=== PATIENT | male | born 1965 | race Caucasian/White ===

== ENCOUNTER 2020-04-26 11:16 | Inpatient (IN) | payer OTHER ==
[~2020-04-26] VITALS: Ht 167.6 cm; Wt 90.3 kg
[2020-04-26 11:22] VITALS: BP 165/96
[2020-04-26 11:43] LABS: ABSOLUTE EOSINOPHILS 0.3 thou/uL (0.0-0.7); ABSOLUTE LYMPHOCYTES 1.7 thou/uL (0.8-5.3); ABSOLUTE MONOCYTES 0.6 thou/uL (0.0-1.2); ABSOLUTE NEUTROPHILS 3.4 thou/uL (1.6-8.1); BASOPHILS 0.5 %; EOSINOPHILS 4.7 %; HEMATOCRIT 47.1 % (42.0-52.0); HEMOGLOBIN 16.1 gm/dL (14.0-18.0); MCH 31.5 pg (26.0-34.0); MCHC 34.1 g/dL (28.0-37.0); MCV 92.3 fL (80.0-100.0); MONOCYTES 10.1 %; MPV 8.2 fl. (7.2-11.1); NUCLEATED RBCS 0 /100WBC; PLATELET COUNT* 183 thou/uL (150-400); POLYS 56.7 %; RDW-CV 13.6 % (10.5-14.5)
[2020-04-26 11:49] LABS: CALCIUM 8.4 mg/dL (8.5-10.1); CREATININE 0.9 mg/dL (0.6-1.3); POTASSIUM 4.1 mmol/L (3.5-5.1)
[2020-04-26 11:59] LABS: ALBUMIN 3.6 g/dL (3.4-5.0); MAGNESIUM 2.1 mg/dL (1.8-2.4); TOTAL BILIRUBIN 0.5 mg/dL (<0.1-1.0); TOTAL PROTEIN 6.7 g/dL (6.4-8.2)
[2020-04-26] MEDS ORDERED: TOPROL XL25 MG PO (13:29)
[2020-04-26] MEDS ORDERED: ZESTRIL20 MG PO (13:29)
[2020-04-26] MEDS ORDERED: NAPROSYN500 MG PO (13:30)
[2020-04-26 15:14] VITALS: BP 144/71
[2020-04-26 16:03] VITALS: BP 153/81
[2020-04-26 20:00] VITALS: BP 118/75
[2020-04-27] VITALS: BP 150/90
[2020-04-27 04:00] VITALS: BP 138/77
[2020-04-27 08:00] VITALS: BP 171/113
--- NOTE | 2020-04-27 12:13 | EKG ---
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: AUTUMN : 1965 Requested By: Luis Gamoba Order Number: [id number] MD: Liban Marley Measurements Intervals [place] Rate: 57 P: 22 ME: 161 QRS: -35 QRSD: 104 T: 212 QT: 422 QTc: 411 Interpretive Statements Sinus rhythm Left axis deviation Probable anteroseptal infarct, old Abnormal T, consider ischemia, diffuse leads Baseline wander in lead(s) II,III,aVR,aVF No previous ECG available for comparison Electronically Signed On 04-27-2020 12:13:01 CDT by Liban Marley [email or web address] <ELECTRONICALLY SIGNED> By: Juan Carlos Marley MD, FACC 04/27/20 1213 21 112 Juan Carlos Marley MD, FACDontae /EPI
[2020-04-27 15:24] VITALS: BP 144/102
[2020-04-27 19:57] VITALS: BP 188/120
[2020-04-27 20:30] VITALS: BP 159/100
[2020-04-28] VITALS: BP 169/100
[2020-04-28 04:04] VITALS: BP 159/93
[2020-04-28 04:23] LABS: CHOLESTEROL 170 mg/dL (<200); HDL CHOLESTEROL 50 mg/dL (>40); LDL CHOLESTEROL 97 mg/dL (<100); TC:HDL 3.4 Ratio (Not establshd); TRIGLYCERIDE 118 mg/dL (<150); VLDL 24 mg/dL (<40)
[2020-04-28 04:28] LABS: SERUM ASSESSMENT Clear
[2020-04-28 08:36] VITALS: BP 189/112
[2020-04-28] MEDS ORDERED: PROTONIX40 M4 PO (11:18)
--- NOTE | 2020-04-28 16:37 | 2DMMODE ---
[place] [address] 2 D/M-MODE ECHOCARDIOGRAM Name: NAEEM VARGAS Room: [address] ADM IN M.R.#: [id number] Admission: 04/26/20 Attend Phys: Destin Nowak Discharge: Date of : 61 Date of Service: 04/28/20 1636 Report #: [id number] THIS REPORT FOR: cc: FAM - Family physician unknown FAM - Family physician unknown Justo Donohue MD [facility] ~ APPROVED REPORT Study performed: 04/28/2020 10:32:48 EXAM: Comprehensive 2D, Doppler, and color-flow Echocardiogram Patient Location: Bedside BSA: 1.97 HR: 51 bpm BP: 189/112 mmHg Other Information Study Quality: Adequate Indications Chest Pain 2D Dimensions IVSd: 17.72 (7-11mm) LVOT Diam: 21.66 (18-24mm) LVDd: 51.27 mm PWd: 13.03 (7-11mm) Ascending Ao: 40.52 (22-36mm) LVDs: 37.17 (25-40mm) Aortic Root: 31.06 mm Volumes Left Atrial Volume (Systole) LA ESV Index: 29.40 mL/m2 Aortic Valve AoV Peak Sherwin.: 0.97 m/s AO Peak Gr.: 3.76 mmHg LVOT Max P.17 mmHg AO Mean Gr.: 2.23 mmHg LVOT Mean P.00 mmHg LVOT Max V: 0.74 m/s AO V2 VTI: 21.67 cm LVOT Mean V: 0.46 m/s LINETTE (VTI): 2.59 cm2 LVOT V1 VTI: 15.23 cm Mitral Valve E/A Ratio: 1.69 [place] [address] 2 D/M-MODE ECHOCARDIOGRAM Name: NAEEM VARGAS Room: [address] IN .R.#: [id number] Admission: 04/26/20 Attend Phys: Destin Nowak Discharge: Date of : 61 Date of Service: 04/28/20 1636 Report #: [id number] MV Decel. Time: 169.90 ms MV E Max Sherwin.: 0.78 m/s MV PHT: 49.27 ms MVA (PHT): 4.47 cm2 TDI E/Lateral E': 8.67 E/Medial E': 13.00 Medial E' Sherwin.: 0.06 m/s Lateral E' Sherwin.: 0.09 m/s Pulmonary Valve PV Peak Sherwin.: 0.76 m/s PV Peak Gr.: 2.31 mmHg Tricuspid Valve RAP Estimate: 15.00 mmHg TR Peak Gr.: 35.28 mmHg RVSP: 50.28 mmHg PA Pressure: 50.28 mmHg Left Ventricle The left ventricle is normal size. There is normal LV segmental wall motion. Mild concentric left ventricular hypertrophy. The left ventricular systolic function is normal. LVEF is 50-55%. The left ventricular diastolic function is normal. Right Ventricle The right ventricle is normal size. The right ventricular systolic function is normal. Atria The left atrium size is normal. The right atrium size is normal. Aortic Valve The aortic valve is normal in structure. No aortic regurgitation is present. There is no aortic valvular stenosis. Mitral Valve The mitral valve is normal in structure. Trace mitral regurgitation. No evidence of mitral valve stenosis. Tricuspid Valve The tricuspid valve is normal in structure. Trace tricuspid regurgitation. No pulmonary hypertension. Pulmonic Valve The pulmonary valve is normal in structure[place] [address] 2 D/M-MODE ECHOCARDIOGRAM Name: NAEEM VARGAS Room: [address] IN [facility]#: [id number] Admission: 04/26/20 Attend Phys: Destin Nowak Discharge: Date of : 61 Date of Service: 04/28/20 1636 Report #: [id number] regurgitation. Great Vessels The aortic root is normal in size. The inferior vena cava is not well visualized. Pericardium There is no pericardial effusion. <Conclusion> The left ventricle is normal size. Mild concentric left ventricular hypertrophy. The left ventricular systolic function is normal. LVEF is 50-55%. The left ventricular diastolic function is normal. Trace mitral regurgitation. Trace tricuspid regurgitation. No pulmonary hypertension. <ELECTRONICALLY SIGNED> By: Justo Donohue MD, FACC 04/28/201635 35 35 Justo Donohue MD, FACC /INF
[2020-04-28 17:18] VITALS: BP 192/110
[2020-04-28] MEDS ORDERED: MAXZIDE-25 MG1 EACH PO (17:18)
[2020-04-28] MEDS ORDERED: FLOMAX0.4 MG PO (17:18)
--- NOTE | 2020-04-28 18:04 | CARDNUC ---
[place] [address] CARDIAC NUCLEAR IMAGING REPORT Name: VARGASNAEEM Mari Room: [address] IN [facility]#: [id number] Admission: 04/26/20 Attend Phys: Destin Nowak Discharge: Date of : 61 Date of Service: 04/28/20 1804 Report #: [id number] THIS REPORT FOR: cc: FAM - Family physician unknown FAM - Family physician unknown Justo Donohue MD [facility] ~ APPROVED REPORT Imaging Protocol: Stress Tc-99mm Only Study performed: 04/27/2020 11:18:00 Indication: Chest pain, Dyspnea, numbness left arm, shoulder and back. Patient Location: In-Patient Room #: 210 Stress Tech: Luz Maria Velazquez Stress Nurse: Nicole Montano RN NM Tech:VALERY Singh Ht: 5 ft 6 in Wt: 186 lbs BSA: 1.94 m2 BMI: 30.01 Medical History Medical History: Angina, Dyspnea,chills, numbness in left arm, shoulder, back, bradycardia, CVA, lower exercise tolerance, increased fatigue, HTN, current smoker, knee pain/bone on bone, unstable gait. Medications: Metoprolol, ASA 81 Mg, Lisinopril. Allergies: No known drug allergies Cardiac Risk Factors: Age, Current Smoker, FHX of CAD, HTN, SOB, ABN EKG, Bradycardia. Previous Cardiac Procedures: None Pretest Chest Pain Characteristics: Chest pain 2/ Exercise History: Sedentary Physical Disabilities: Knee pain - bone on bone, unstable/weak gait. Meds Held (24 hrs): Metoprolol. Pharmacologic Stress Pharmacologic stress test was performed by injecting Regadenoson 0.4 mg IV push over 10-15 seconds immediately followed by the intravenous injection of 33.6 mCi of Tc-99m Sestamibi. Time of stress injection: 1155 Date: 04/28/2020 Administration Route: [place] [address] CARDIAC NUCLEAR IMAGING REPORT Name: NAEEM VARGAS Room: [address]#: [id number] Admission: 04/26/20 Attend Phys: Destin Nowak Discharge: Date of : 61 Date of Service: 04/28/20 1804 Report #: [id number] Administration Site: Right AC Gated Stress SPECT was performed 40 minutes after stress injection. The images were gated to evaluate regional wall motion and calculate left ventricular ejection fraction. Prone imaging was performed. Stress Test Details Stress Test: Pharmacologic stress testing performed using 0.4 mg of regadenoson per 5 mL given IV over 10 seconds. Reason for pharmacologic stress test: Knee pain - bone on bone, unstable/weak gait.. HR Max Heart Rate (APMHR): 164 bpm Resting HR: 53 bpm Target HR (85% APMHR): 139 bpm Max HR Achieved: 77 bpm % of APMHR: 46 Recovery HR: 71 bpm BP Resting BP: 199/114 mmHg Max BP: 176/104 mmHg Recovery BP: 188/109 mmHg ECG Resting ECG: Sinus Rhythm Stress ECG: Sinus Rhythm ST Change: None Arrhythmia: None Recovery ECG: Sinus Rhythm Recovery ST Change: None Recovery Arrhythmia: None Clinical Reason for Termination: Completed protocol Stress Symptoms: Nausea, LE coldness, heavy legs, chest pain 09/10. Exercise duration: 00 min 00 sec Exercise capacity: 1.00 METs The patient tolerated Lexiscan infusion without significant cardiac symptoms. Nurse Comments A 54 year old male inpatient presented with impairing knee pain for a sitting Lexiscan r/t chest pain, dyspnea, ABN EKG, Bradycardia, numbness in left arm, shoulder and back with increased fatigue and decreased exercise tolerance. Test [place] [address] CARDIAC NUCLEAR IMAGING REPORT Name: NAEEM VARGAS Room: [address]#: [id number] Admission: 04/26/20 Attend Phys: Destin Nowak Discharge: Date of : 61 Date of Service: 04/28/20 1804 Report #: [id number] unremarkable. Patient stated he felt good at the end of recovery with continued HTN. Patient escorted via wheelchair to Nuclear Medicine for imaging. Stress ECG Conclusion Baseline twelve-lead EKG shows sinus rhythm without significant ST segment abnormalities. EKGs obtained during and post Lexiscan infusion show sinus rhythm with no significant ST segment changes when compared to baseline. There were no significant stress-induced arrhythmias. Study Quality Study: Good Artifact: No artifact Study Data Post stress, the left ventricular ejection was 47%.. Perfusion Perfusion images show uniform uptake of the radioisotope throughout the myocardium. There were no defects to suggest infarct or ischemia. Wall Motion Gated study suggest mild global hypokinesis without focal wall motion abnormality. Ejection fraction calculated to be 47%. Nuclear Conclusion ECG Findings: negative for ischemia Clinical Findings: negative for ischemia Nuclear Findings: negative for ischemia Exercise Capacity: not assessed Left Ventricular Function: Mildly decreased Perfusion study showed no defect to suggest infarct or ischemia. LV systolic function appears mildly decreased on gated studies without obvious focal wall motion abnormality. This is not a high risk study. <Conclusion> Baseline twelve-lead EKG shows sinus rhythm without significant ST segment abnormalities. EKGs obtained during and post Lexiscan infusion show sinus rhythm with no [place] [address] CARDIAC NUCLEAR IMAGING REPORT Name: NAEEM VARGAS Room: [address] IN .#: [id number] Admission: 04/26/20 Attend Phys: Destin Nowak Discharge: Date of : 61 Date of Service: 04/28/20 1804 Report #: [id number] when compared to baseline. There were no significant stress-induced arrhythmias. <ELECTRONICALLY SIGNED> By: Justo Donohue MD, FACC 04/28/201803 03 03 Justo Donohue MD, FACC /INF
[2020-04-28 18:09] VITALS: BP 192/110
--- NOTE | 2020-04-29 08:02 | CON ---
[address] [address] CONSULTATION Name: NAEEM VARGAS Room: [address] IN M.R.#: [id number] Admission: 04/26/20 Attend Phys: Jose Angel Cooper Discharge: 04/28/20 Date of : 61 Report #: [id number] THIS REPORT FOR: //name// cc: FAM - Family physician unknown FAM - Family physician unknown ~ CARDIOLOGY CONSULTATION HISTORY OF PRESENT ILLNESS: I was asked by Dr. Nowak to see this 54-year-old white male in cardiology consultation for evaluation and treatment of chest pain. This man does have a history of essential hypertension and a previous CVA, I believe the CVA was in 2014. This man did have similar pain with a workup at [facility] in 2018. All that came of that workup was that he was said to have an enlarged heart. This man's chest pain started last Tuesday. The pain is in the left upper chest, left shoulder area under the left arm and around to the left back. He describes the pain as sharp like a knife, it is a 5 on a scale of 10, it has been largely continuous since that time, although sometimes it becomes numb in those areas. There was no associated nausea, vomiting, diaphoresis but minimal amount of shortness of breath. The pain is nonexertional, it is nonradiating. It has been present almost continuously except for the time which is numb since last Tuesday. This man does have a history of essential hypertension. There is a family history of coronary disease and he is a smoker. He smoked for many years. It was told by me today no uncertain terms to stop smoking. He does not have diabetes or hypercholesterolemia to his knowledge. PAST MEDICAL HISTORY: As described above. HOME MEDICATIONS: Metoprolol succinate extended release 25 mg daily and lisinopril 20 mg daily as well as naproxen 500 mg p.o. b.i.d. p.r.n. ALLERGIES: He has no known allergies. FAMILY HISTORY: Remarkable only for coronary disease. SOCIAL HISTORY: He smokes. Drinks minimally. Does not use illegal drugs. He is . REVIEW OF SYSTEMS: Unremarkable except as in the history of present illness. PHYSICAL EXAMINATION: GENERAL: He presents as well-developed, well-nourished white male in no acute distress. VITAL SIGNS: His pulse is 54 and regular, blood pressure is 138/77, respirations 16 and regular, temperature is 97.8. HEENT: His head was atraumatic. Eyes clear. NECK: Supple. There is no jugular venous distention or hepatojugular reflux. Thyroid is not enlarged. [place] [address] CONSULTATION Name: NAEEM VARGAS Room: [address] IN [facility].#: [id number] Admission: 04/26/20 Attend Phys: Jose Angel Cooper Discharge: 04/28/20 Date of : 61 Report #: [id number] SKIN: Warm and dry. Mucous membranes are moist. LUNGS: Clear to auscultation and percussion. HEART: Revealed normal first and second heart sound. There is soft S4. There is no S3. There are no murmurs, rubs, thrills, heaves or gallops. PMI is nondisplaced. ABDOMEN: Soft, flat and nontender. No palpable masses, no organomegaly. EXTREMITIES: Reveal no cyanosis, clubbing or edema. NEUROLOGIC: The patient mentated normally, talked normally, moved all extremities normally. Note that moving his shoulder and arm does not result in pain. LABORATORY DATA: His chest x-ray was normal. A CTA of the chest was normal except for an ectatic aorta in the ascending aorta, which measured 3.8 x 3.9. There was no clearcut aneurysm or dissection. There was no pulmonary embolism. His NT-proBNP was 30 and troponins were negative x 3. His EKG is not normal. It shows sinus bradycardia, heart rate was 57. There is left axis deviation. The axis was minus 35. There was a possible old anteroseptal infarct. There was a near Q-wave in V2 and near Q-wave in V1. There may be little R waves. There were T-wave inversions in multiple leads including 1, 3, aVF, V5 and V6. Ischemia cannot be excluded. IMPRESSION: 1. Chest pain is somewhat atypical for coronary artery disease. 2. Abnormal EKG. 3. Essential hypertension. 4. Status post cerebrovascular accident. 5. Family history of coronary disease. RECOMMENDATION: He should have a Lexiscan Cardiolite stress test. He says he cannot walk on a treadmill very well and he should get an echo. I would also check for evidence of inflammation with a sed rate, AKASH, RA titer and cardiac CRP and also check a fasting lipid profile. Thank you very much for asking me to see the patient. If there are any questions, please feel free to contact me. <ELECTRONICALLY SIGNED> By: Juan Carlos Marley MD, [facility] 04/29/20 0802 1053 [id number]. Liban Marley MD, FACC /nt
[2020-04-29 10:08] LABS: ANA INTERPRETATION Negative (Negative)
== END 2020-04-28 18:26 | disposition home or self-care (01) | DRG 313 ==
LOC: M.ERS 11:16 → M.TBA-ER 13:28 → M.2W 13:28
PROVIDERS: Emergency Medicine Emergency Medical Services; Internal Medicine; ADMIT Internal Medicine; ATTEND Internal Medicine
DX: R07.9 Chest pain, unspecified (principal); I10 Essential (primary) hypertension; I77.810 Thoracic aortic ectasia; F17.210 Nicotine dependence, cigarettes, uncomplicated; F19.10 Other psychoactive substance abuse, uncomplicated; Z82.49 Family history of ischemic heart disease and other diseases of the circulatory system; Z86.73 Personal history of transient ischemic attack (TIA), and cerebral infarction without residual deficits

== ENCOUNTER 2020-09-08 11:15 | Inpatient (IN) | payer OTHER ==
[~2020-09-08] VITALS: Ht 165.1 cm; Wt 78.5 kg
--- NOTE | ~2020-09-08 | EMS ---
[facility] [address] [place] [address] EMS Patient Care Report Name: NAEEM VARGAS Room: [facility]#: [id number] Admission: 09/08/20 Attend Phys: Discharge: Date of : 61 Report #: [id number] THIS REPORT FOR: //name// Report Transmitted: 09/08/2020 11:50 EMS Care Summary [place] [employer] [facility] Incident 21- 0230 @ 09/08/2020 10:16 Incident Location [address] [id number] Patient NAEEM VARGAS Male, 55 Years 1965 Patient Address [address] [place] [address] Patient History Hypertension (HTN),Cardiac Condition - Other, Patient Allergies No known allergies, Patient Medications Hydrocodone, Metoprolol, Hydrochlorothiazide (Hctz), Lisinopril, Chief Complaint Left Knee Pain Disposition Transported No Lights/Notrees Dispatch Reason No Other Appropriate Choice Transported To [facility] Narrative Med 1 was dispatched for a mutual aid call for [place] for a [age] year-old male c/o left knee pain. Upon arrival, [place] fire was on scene to assist. The patient was in his living room sitting in a wheelchair c/o pain and swelling to his left knee. Patient reported that his surgery was approximately [facility] [address] [place] [address] EMS Patient Care Report Name: NAEEM VARGAS Room: [facility]#: [id number] Admission: 09/08/20 Attend Phys: Discharge: Date of : 61 Report #: [id number] eight weeks ago on his knee for a ACL repair and his knee. He started having pain and swelling yesterday and it is not subsiding. Patient was assisted to the stretcher and and secured via seatbelts and moved to the ambulance without incident. In the ambulance, patient's vitals were obtained. Patient was placed on the cardiac care unit nurse. It shown NSR with occasional PVC's. IV access was obtained in the patient's left AC with a 20 GA IV catheter. Normal Saline was started at a TKO rate. Med 1 went en route to [facility]. Patient rated his knee pain a 10/10. 100 mcg of Phentanyl was given via IV. Hospital report was given via radio with no questions or orders received or requested. Med 1 arrived at the hospital. Patient rated his pain a 3/10. Patient was moved into the ER via stretcher to room 6. Patient care was transferred to ER staff. Med 1 returned back into service. [id number] KShook Initial Vitals @10:38P: 86,SpO2: 95, @10:38P: 87,BP: 176/107,SpO2: 94, @10:40P: 77,SpO2: 95, @11:00P: 71,SpO2: 97, @10:50P: 73,SpO2: 94, @11:05P: 70,SpO2: 97, @10:45P: 84,R: 20,BP: 170/110,Pain: 10/10,GCS: 15,SpO2: 95,Revised Trauma: 12, @10:58P: 69,R: 20,BP: 135/82,Pain: 4/10,GCS: 15,SpO2: 94,Revised Trauma: 12, @11:10P: 75,R: 18,BP: 140/78,Pain: 4/10,GCS: 15,SpO2: 94,Revised Trauma: 12, Assessments @11:04MENTAL:No Abnormalities,SKIN:No Abnormalities,HEENT:Head/Face: No Abnormalities,Eyes: No Abnormalities,Neck/Airway: No Abnormalities,LUNG SOUNDS:General: No Abnormalities,Left Upper: No Abnormalities,Right Upper: No Abnormalities,Left Lower: No Abnormalities,Right Lower: No Abnormalities,ABDOMEN:General: No Abnormalities,Left Upper: No Abnormalities,Right Upper: No Abnormalities,Left Lower: No Abnormalities,Right Lower: No Abnormalities,PELVIS//GI:No Abnormalities,EXTREMITIES:Left Leg: Edema,Left Leg: Weakness,Left Arm: No Abnormalities,Right Arm: No Abnormalities,Right Leg: No Abnormalities,PULSE:NEURO:No Abnormalities, Impression Extremity Pain Procedures @10:36 cc (20 ga) Site: Forearm-LeftResponse: UnchangedFailed@10:40[place] [address] EMS Patient Care Report Name: NAEEM VARGAS Room: [facility]#: [id number] Admission: 09/08/20 Attend Phys: Discharge: Date of : 61 Report #: [id number] Saline (.9% NaCl) 300cc (20 ga) Site: Antecubital-LeftResponse: UnchangedSucceeded@10:45Fentanyl - 100 Micrograms (mcg) - Intravenous (IV)Response: Improved Timeline 10:16,Call Received 10:16,Dispatched 10:16,En Route 10:30,On Scene 10:31,At Patient 10:36, cc 20 ga Site: Forearm-Left,Response: UnchangedFailed, 10:38,BP: 176/107 M,PULSE: 87,RR: R,SPO2: 94 Ox,ETCO2: ,BG: ,PAIN: ,GCS: , 10:38,BP: / M,PULSE: 86,RR: R,SPO2: 95 Ox,ETCO2: ,BG: ,PAIN: ,GCS: , 10:40,Normal Saline (.9% NaCl) 300cc 20 ga Site: Antecubital-Left,Response: UnchangedSucceeded, 10:40,BP: / M,PULSE: 77,RR: R,SPO2: 95 Ox,ETCO2: ,BG: ,PAIN: ,GCS: , 10:44,Depart Scene 10:45,Fentanyl - 100 Micrograms (mcg) - Intravenous (IV),Response: Improved 10:45,BP: 170/110 M,PULSE: 84,RR: 20 R,SPO2: 95 Ox,ETCO2: ,BG: ,PAIN: 10,GCS: 15, 10:50,BP: / M,PULSE: 73,RR: R,SPO2: 94 Ox,ETCO2: ,BG: ,PAIN: ,GCS: , 10:58,BP: 135/82 M,PULSE: 69,RR: 20 R,SPO2: 94 Ox,ETCO2: ,BG: ,PAIN: 4,GCS: 15, 11:00,BP: / M,PULSE: 71,RR: R,SPO2: 97 Ox,ETCO2: ,BG: ,PAIN: ,GCS: , 11:05,BP: / M,PULSE: 70,RR: R,SPO2: 97 Ox,ETCO2: ,BG: ,PAIN: ,GCS: , 11:10,BP: 140/78 M,PULSE: 75,RR: 18 R,SPO2: 94 Ox,ETCO2: ,BG: ,PAIN: 4,GCS: 15, 11:12,At Destination 11:12,Transfer Patient 11:46,Call Closed 11:46,In District Disclaimer v1.1 Copyright 2020 [employer] This EMS Care Summary contains data elements from the applicable legal record (which may be displayed differently). It is designed to provide pertinent information for the following purposes: continuity of care, clinical quality, and state data reporting. The complete legal record is available to ED staff and administrators of the receiving hospital in [employer]'s Patient Tracker. All data is provided "as is."
[~2020-09-08 11:15] MED LIST: FLOMAX0.4 MG PO; MAXZIDE-25 MG1 EACH PO; NAPROSYN500 MG PO; PROTONIX40 M4 PO; TOPROL XL25 MG PO; ZESTRIL20 MG PO
[2020-09-08 11:17] VITALS: BP 127/88
[2020-09-08] MEDS ORDERED: NORCO5 PO (11:22)
[2020-09-08 11:48] LABS: ABSOLUTE EOSINOPHILS 0.1 thou/uL (0.0-0.7); ABSOLUTE LYMPHOCYTES 1.1 thou/uL (0.8-5.3); ABSOLUTE MONOCYTES 0.7 thou/uL (0.0-1.2); ABSOLUTE NEUTROPHILS 6.6 thou/uL (1.6-8.1); BASOPHILS 0.5 %; EOSINOPHILS 1.7 %; HEMATOCRIT 42.2 % (42.0-52.0); HEMOGLOBIN 14.5 gm/dL (14.0-18.0); LYMPHOCYTES 13.2 %; MCH 31.8 pg (26.0-34.0); MCHC 34.3 g/dL (28.0-37.0); MCV 92.7 fL (80.0-100.0); MONOCYTES 8.6 %; MPV 7.7 fl. (7.2-11.1); NUCLEATED RBCS 0 /100WBC; PLATELET COUNT* 218 thou/uL (150-400); RBC 4.55 mil/uL (4.50-6.00); RDW-CV 13.1 % (10.5-14.5); WBC 8.6 thou/uL (4.0-11.0)
[2020-09-08 11:54] LABS: CALCIUM 8.6 mg/dL (8.5-10.1); CREATININE 0.8 mg/dL (0.6-1.3); POTASSIUM 3.5 mmol/L (3.5-5.1)
[2020-09-08 12:51] LABS: ESR (SEDRATE) 25 mm/hr (0-20)
[2020-09-08 14:27] LABS: CLARITY CLOUDY; SOURCE SYNOVIAL; TOTAL VOLUME 22 ml
[2020-09-08 14:28] LABS: BF RBC 3336 /mm3; TOTAL CELL COUNT 34263 /mm3
[2020-09-08 14:39] LABS: BF POLYS 97 %; BF TISSUE 4 /100 WBC; BODY FLUID BANDS 3 %
[2020-09-08 14:40] LABS: BF LYMPHOCYTES 0 %; BF MONOCYTES 0 %
[2020-09-08 14:41] LABS: BF EOSINOPHILS 0 %
[2020-09-08 15:49] VITALS: BP 165/87
[2020-09-08 16:18] VITALS: BP 116/76
[2020-09-08 21:45] VITALS: BP 143/84
[2020-09-09 05:23] LABS: ABSOLUTE EOSINOPHILS 0.2 thou/uL (0.0-0.7); ABSOLUTE LYMPHOCYTES 1.8 thou/uL (0.8-5.3); ABSOLUTE MONOCYTES 0.7 thou/uL (0.0-1.2); ABSOLUTE NEUTROPHILS 4.9 thou/uL (1.6-8.1); BASOPHILS 0.4 %; EOSINOPHILS 2.9 %; HEMATOCRIT 39.2 % (42.0-52.0); HEMOGLOBIN 13.3 gm/dL (14.0-18.0); LYMPHOCYTES 23.5 %; MCH 31.4 pg (26.0-34.0); MCHC 33.9 g/dL (28.0-37.0); MCV 92.6 fL (80.0-100.0); MONOCYTES 8.8 %; MPV 7.7 fl. (7.2-11.1); NUCLEATED RBCS 0 /100WBC; PLATELET COUNT* 205 thou/uL (150-400); POLYS 64.4 %; RBC 4.23 mil/uL (4.50-6.00); RDW-CV 13.2 % (10.5-14.5); WBC 7.6 thou/uL (4.0-11.0)
[2020-09-09 05:31] LABS: CALCIUM 8.1 mg/dL (8.5-10.1); CREATININE 0.8 mg/dL (0.6-1.3); POTASSIUM 3.6 mmol/L (3.5-5.1)
[2020-09-09 07:40] VITALS: BP 147/90
--- NOTE | 2020-09-09 09:38 | EKG ---
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1965 Requested By: Amber Crane Order Number: [id number] Reading MD: Justo Donohue Measurements Intervals [place] Rate: 53 P: 25 VT: 175 QRS: -3 QRSD: 104 T: 95 QT: 427 QTc: 401 Interpretive Statements Sinus rhythm Borderline low voltage, extremity leads Nonspecific T abnormalities, lateral leads Compared to ECG 04/26/2020 11:22:12 Left-axis deviation no longer present Myocardial infarct finding no longer present Possible ischemia no longer present T-wave abnormality still present Electronically Signed On 09-09-2020 9:38:02 PROGRAM OR PROJECT ADMINISTRATOR by Justo Donohue [email or web address] <ELECTRONICALLY SIGNED> By: Justo Donohue MD, [facility] 09/09/20937 9 9 Justo Donohue MD, [facility] /EPI
--- NOTE | 2020-09-09 12:02 | OP ---
[address] [address] OPERATIVE REPORT Name: NAEEM VARGAS Room: [address] M.R.#: [id number] Admission: 09/08/20 Attend Phys: Jose Daniel Ji MD Discharge: Date of : 61 Report #: [id number] THIS REPORT FOR: cc: FELIZ LEVY NP, HALEY E. NP ~ Boogie Nevarez DO DATE OF SERVICE: 09/09/2020 PREOPERATIVE DIAGNOSIS: Septic arthritis of the left knee. POSTOPERATIVE DIAGNOSIS: Septic arthritis of the left knee. SURGERY PERFORMED: Left knee arthroscopic lavage of 12,000 mL normal saline with synovectomy and with synovial cultures as well as fluid cultures. ANESTHESIA: General. ESTIMATED BLOOD LOSS: 25 mL. Synovial cultures are specimens. COMPLICATIONS: None. Hemovac drain x 1 to the knee. The patient received 1 gram IV as well intraoperatively. INDICATIONS: The patient has been maintained on Rocephin and vancomycin on a scheduled basis. SURGEON: Boogie Nevarez DO DOCUMENT MANAGEMENT TECHNICIAN: Lokesh Escobar DO GROSS FINDINGS: Upon the patient's clinical history of painful left knee pain with weightbearing on this knee, history of a previous 07/23/2020, previous meniscectomy as well as ACL reconstruction at another institution. Intraoperatively, the patient continued to have chills, admitted to the hospital with CRP, significant elevated white count and elevated now, warm knee as well. He tells me he did have some active drainage from the medial portal type area after surgery and this lasted several weeks. The patient today demonstrated again synovitis throughout the knee region, which photographs were taken as well as photographs taken of the purulent fluid that was removed; it was dark brown in color. The patient also demonstrated a torn medial meniscus and medial compartment osteoarthritis arthroscopically. L[place] [address] OPERATIVE REPORT Name: NAEEM VARGAS Mari Room: [address] [facility]#: [id number] Admission: 09/08/20 Attend Phys: Jose Daniel Ji MD Discharge: Date of : 61 Report #: [id number] SURGERY IN DETAIL: The patient taken to the operating room and placed on the table, given the benefit of the general anesthetic. The well-padded knee donato brace was applied to the knee, underwent a chlorhexidine prep and sterile draping for left knee surgery. Timeout was called and verified by everyone in the room for the left knee. Saw his two standard previous portal incisions, we made new incision right through the old ones as well as one superior lateral portal for lavage irrigation. I started with the proximal lavage irrigation, ____ the large came up to that. Scope was placed inferiorly. We lavaged at least 10,000 mL of normal saline through this knee. It was totally clear and then I did tissue grasper cultures, took out several small samples, sent him to the lab as well as the fluid that came out of the knee, which was purulent in color and brown. I did go ahead and do a 3-compartment synovectomy of this knee region as well. The patient following this again had more lavage through the knee to a total of 12,000 mL. He did go ahead and I placed a Hemovac drain in the superior pouch region of this left knee. All sutures of 3-0 nylon were used on the skin to close the portals. Xeroform, 4 x 4's, Kerlix, soft roll, Saul, sterile dressing were applied. He was transferred off the table and taken to recovery in stable condition. I attest I was present for all critical aspects of surgery. Needle, instrument, and sponge counts correct. <ELECTRONICALLY SIGNED> By: Boogie Nevarez DO 09/09/20 1202 [id number] Nevarez DO /nt
[2020-09-09 16:00] VITALS: BP 147/89
[2020-09-09 19:45] VITALS: BP 113/68
[2020-09-10 04:40] LABS: HEMATOCRIT 36.7 % (42.0-52.0); HEMOGLOBIN 12.4 gm/dL (14.0-18.0); MCH 31.2 pg (26.0-34.0); MCHC 33.8 g/dL (28.0-37.0); MCV 92.3 fL (80.0-100.0); RBC 3.98 mil/uL (4.50-6.00); WBC 5.7 thou/uL (4.0-11.0)
[2020-09-10 04:54] LABS: CALCIUM 8.1 mg/dL (8.5-10.1); CREATININE 0.7 mg/dL (0.6-1.3); POTASSIUM 3.8 mmol/L (3.5-5.1)
[2020-09-10 07:40] VITALS: BP 158/91
[2020-09-10 15:50] VITALS: BP 199/107
[2020-09-10 20:30] VITALS: BP 154/99
[2020-09-11 04:38] LABS: HEMATOCRIT 37.6 % (42.0-52.0); HEMOGLOBIN 12.9 gm/dL (14.0-18.0); MCH 31.6 pg (26.0-34.0); MCHC 34.2 g/dL (28.0-37.0); MCV 92.4 fL (80.0-100.0); MPV 7.8 fl. (7.2-11.1); RBC 4.07 mil/uL (4.50-6.00); RDW-CV 12.7 % (10.5-14.5)
[2020-09-11 04:46] LABS: CALCIUM 8.2 mg/dL (8.5-10.1); CREATININE 0.8 mg/dL (0.6-1.3); POTASSIUM 3.5 mmol/L (3.5-5.1)
[2020-09-11 15:52] VITALS: BP 169/102
[2020-09-11 21:30] VITALS: BP 159/90
[2020-09-12] VITALS (7 sets, daily range): BP systolic 172; BP diastolic 105
[2020-09-12 04:39] LABS: ABSOLUTE EOSINOPHILS 0.2 thou/uL (0.0-0.7); ABSOLUTE LYMPHOCYTES 1.7 thou/uL (0.8-5.3); ABSOLUTE MONOCYTES 0.5 thou/uL (0.0-1.2); BASOPHILS 0.6 %; EOSINOPHILS 3.7 %; HEMATOCRIT 39.5 % (42.0-52.0); HEMOGLOBIN 13.4 gm/dL (14.0-18.0); LYMPHOCYTES 25.9 %; MCH 31.2 pg (26.0-34.0); MCV 91.8 fL (80.0-100.0); MONOCYTES 7.6 %; MPV 7.7 fl. (7.2-11.1); NUCLEATED RBCS 0 /100WBC; PLATELET COUNT* 239 thou/uL (150-400); POLYS 62.2 %; RDW-CV 12.8 % (10.5-14.5); WBC 6.5 thou/uL (4.0-11.0)
[2020-09-12 05:05] LABS: ALBUMIN 2.6 g/dL (3.4-5.0); CREATININE 0.8 mg/dL (0.6-1.3); POTASSIUM 3.4 mmol/L (3.5-5.1); TOTAL BILIRUBIN 0.4 mg/dL (<0.1-1.0); TOTAL PROTEIN 5.9 g/dL (6.4-8.2)
[2020-09-12 06:33] LABS: ESR (SEDRATE) 30 mm/hr (0-20)
[2020-09-12] MEDS ORDERED: COLACE100 MG PO (08:59)
[2020-09-12] MEDS ORDERED: ZOFRAN ODT4 MG PO (08:59)
[2020-09-12] MEDS ORDERED: CEFTRIAXONE2 G1 IVPB (08:59)
== END 2020-09-12 16:53 | disposition home or self-care (01) | DRG 487 ==
LOC: M.ERS 11:15 → M.ORTHSURG 13:51 → M.TBA-ER 13:51 → M.ORTHSURG 16:03
PROVIDERS: Emergency Medicine Emergency Medical Services; Family Medicine; Internal Medicine; ADMIT Internal Medicine; ATTEND Internal Medicine
PROC: 0S9D3ZZ Drainage of Left Knee Joint, Percutaneous Approach (ICD-10-PCS; principal; 2020-09-08)
PROC: 0SBD4ZZ Excision of Left Knee Joint, Percutaneous Endoscopic Approach (ICD-10-PCS; 2020-09-09)
PROC: 3E1U48Z Irrigation of Joints using Irrigating Substance, Percutaneous Endoscopic Approach (ICD-10-PCS; 2020-09-09)
PROC: 05HY33Z Insertion of Infusion Device into Upper Vein, Percutaneous Approach (ICD-10-PCS; 2020-09-12)
DX: M00.9 Pyogenic arthritis, unspecified (principal); I10 Essential (primary) hypertension; M25.462 Effusion, left knee; M17.12 Unilateral primary osteoarthritis, left knee; Z20.822 Contact with and (suspected) exposure to COVID-19; Z86.73 Personal history of transient ischemic attack (TIA), and cerebral infarction without residual deficits